=== PATIENT | female | born 1960 | race Caucasian/White ===

== ENCOUNTER → 2017-10-27 08:00 | Outpatient (CLI) | payer MEDICAID ==
[~2017-10-27] VITALS: Ht 160 cm; Wt 68.2 kg
--- NOTE | ~2017-10-27 | HEMODYNAMI ---
PATIENT:NJ SILVA MEDICAL RECORD: [id number] : 62 LOCATION:[facility] ADMISSION DATE: 10/27/17 Generatedon:10/27/201710:41 Patient name: NJ SILVA Patient #: [id number] SSN: D OB: 1960 Date of study: 10/27/2017 Page: Of Hemodynamic Procedure Report Patient Data Patient Demographics Procedure consent was obtained First Name: NJ Gender: Female Last Name: RICARDO : 1960 Middle Initial: JOHANN Age: 57 year(s) Patient #: [id number] Race: Unknown Additional ID: [id number] Contact details Address: [address] [place] [address] ROAD State: [place] [facility] [place] code: [address] Past Medical History Allergies Allergen Reaction Date Comments Reported Other allergy 10/27/2017 Codeine Admission Admission Data Admission Date: 10/27/2017 Admission Time: 8:00 Procedure Procedure Types Cath Procedure Diagnostic Procedure C LHC w/Coronaries Procedure Description Procedure Date Procedure Date: 10/27/2017 Procedure Start Time: 10:30 Procedure End Time: 10:37 Procedure Staff Name Function Sunny Maya MD Performing Physician Gemma Adan RT Monitor Renea Mahmood RT Scrub Rosy Saucedo RN Nurse Procedure Data Cath Procedure Fluoroscopy Diagnostic fluoroscopy Total fluoroscopy Time: 0.8 time: 0.8 min min Diagnostic fluoroscopy Total fluoroscopy dose: 192 dose: 192 mGy mGy Contrast Material Contrast Material Type Amount (ml) Isovue 300 52 Entry Location Entry Primary Successful Side Size Upsize Upsize Entry Closure Succes sful Closure Location (Fr) 1 (Fr) 2 (Fr) Remarks Device Remarks Femoral Right 5 Fr Exoseal artery Estimated blood loss: 10 ml Diagnostic catheters Device Type Used For End Catheter Placement MULTIPACK Pigtail 5 Fr Procedure catheter MULTIPACK JL 4.0 5Fr Procedure catheter MULTIPACK 3DRC 5Fr Procedure catheter Procedure Complications No complications Procedure Medications Medication Administration Route Dosage Oxygen etCO2 Nasal cannula 2 l/min Lidocaine 2% added to field 20 Heparin Flush Bag added to field 2 bags (1000units/500ml NS) 0.9% NaCl I.V. 100 ml/hr Versed I.V. 1 mg Fentanyl I.V. 50 mcg Zofran I.V. 4 mg Versed I.V. 1 mg Fentanyl I.V. 50 mcg Hemodynamics Rest Heart Rate: 70 (bpm) Snapshots Pre Cath Intra NCS Post Cath Vital Signs Time Heart Resp SPO2 etCO2 NIBP (mmHg) Rhythm Pain Sedation Rate (ipm) (%) (mmHg) Status Level (bpm) 9:57:00 71 17 99 0 119/74(97) NSR 0 (11) 10(A) , No pain 10:01:06 73 18 100 0 136/83(104) NSR 0 (11) 10(A) , No pain 10:05:16 65 19 97 0 130/68(111) NSR 0 (11) 10(A) , No pain 10:25:02 64 15 100 36.8 137/81(120) NSR 0 (11) 10(A) , No pain 10:29:14 69 15 99 37.6 121/72(104) NSR 0 (11) 9(A) , No pain 10:33:22 77 16 98 44.3 110/70(85) NSR 0 (11) 9(A) , No pain 10:37:40 80 18 98 42.1 109/75(100) NSR 0 (11) 9(A) , No pain 10:39:33 86 19 98 42.8 120/80(96) NSR 0 (11) 10(A) , No pain Medications Time Medication Route Dose Verified Delivered Reason Notes Eff ectiveness by by 10:24:01 0.9% NaCl I.V. 100 Sunny Garrisonie Per ml/hr Zulma Saucedo RN physician 10:24:26 Zofran I.V. 4 mg Sunny Garrisonie Per Zulma Saucedo RN physician 10:24:42 Oxygen etCO2 2 Sunny Garrisonie used for Nasal l/min Zulma Saucedo emergency department technician cannula 10:24:48 Lidocaine 2% added 20ml Sunny Correa for local to vial Zulma Maya MD anesthetic field 10:24:53 Heparin Flush added 2 Sunny Sunny used for Bag to bags Zulma Maya MD procedure (1000units/500ml field NS) 10:28:10 Versed I.V. 1 mg Sunny Gallegos for Zulma Saucedo RN sedation 10:28:17 Fentanyl I.V. 50 Sunny Gallegos for mcg Zulma Saucedo RN sedation 10:33:05 Versed I.V. 1 mg Sunny Gallegos for Zulma Saucedo RN sedation 10:33:09 Fentanyl I.V. 50 Sunny Gallegos for joyce Saucedo RN sedation Procedure Log Time Note 9:17:10 Diagnostic Cath Status : Elective 9:17:50 Rosy Saucedo RN sent for patient. Start room use. 9:17:51 Time tracking: Regular hours (M-F 7:00 - 5:00) 9:17:56 Plan of Care:Hemodynamics will remain stable., Cardiac rhythm will remain stable., Comfort level will be maintained., Respiratory function will remain adequate., Patient/ family verbilizes understanding of procedure., Procedure tolerated without complication., Recovers from procedure without complications.. 9:50:56 Patient received from Pre/Post Procedure Room to CCL 2 Alert and oriented. Tansferred to table in Supine position. 9:50:57 Warm blankets applied, and sherry hugger turned on for patient comfort. 9:50:58 Correct patient and procedure confirmed by team. 9:50:59 Signed procedure consent form obtained from patient. 9:51:00 ECG and BP/O2 sat monitors applied to patient. 9:55:51 Vital chart was started 9:55:56 Baseline sample Acquired. 9:56:01 Rhythm: sinus rhythm 9:56:03 Full Disclosure recording started 9:56:19 H&P Date Dictated: 10/25/2017 Within 30 days and on chart.. 9:56:20 Pre-procedure instructions explained to patient. 9:56:22 Pre-op teaching completed and patient verbalized understanding. 9:56:25 Family in waiting room. 9:56:28 Patient NPO since Midnight. 9:56:46 Patient allergic to Other allergyCodeine 9:56:49 Is the patient allergic to Iodine/contrast media? No. 9:56:51 Was the patient premedicated? Yes 9:56:52 Is patient on blood thinner?Yes 9:56:55 ACC The patient was administered the following blood thiners within the last 24 hours: ACCPlavix 9:57:00 Patient diabetic? No. 9:57:04 Snore? Yes 9:57:05 Sleep apnea? No 9:57:10 Dentures? No ? 9:57:22 Patient pain scale 0/10 ?. 9:57:34 Lab results completed and on chart. 9:57:38 Right groin area was prepped with chlora-prep and draped in sterile fashion 9:57:39 Alarms reviewed by R. N. 9:57:40 Sharps counted by scrub and verified by R.N. 9:57:41 Physician paged 10:16:21 IV right wrist D/C'd due to infiltration. 10:23:29 IV started 24 g to left hand x 3 attempts by Oscar Mi RN. 10:24:01 0.9% NaCl 100 ml/hr I.V. was administered by Rosy Saucedo RN; Per physician; 10:24:26 Zofran 4 mg I.V. was administered by Rosy Saucedo RN; Per physician; 10:24:42 Oxygen 2 l/min etCO2 Nasal cannula was administered by Rosy Saucedo RN; used for procedure; 10:24:48 Lidocaine 2% 20ml vial added to field was administered by Sunny Maya MD; for local anesthetic; 10:24:53 Heparin Flush Bag (1000units/500ml NS) 2 bags added to field was administered by Sunny Maya MD; used for procedure; 10:26:17 Physician arrived 10:26:17 --------ALL STOP TIME OUT------ 10:26:20 Final Timeout: patient, procedure, and site verified with staff and physician. All members of the team are in agreement. 10:26:23 Right groin site verified by team. 10:26:41 Physical assessment completed. ASA score P 2 - A patient with mild systemic disease as per Sunny Maya MD. 10:26:45 Sedation plan: IV Moderate Sedation Medication:Versed, Fentanyl 10:26:49 Use device set Femoral Dx 10:26:51 ACIST Syringe (24725) opened to sterile field. 10:26:51 Bag Decanter (2002S) opened to sterile field. 10:26:52 Medline Cath Pack ([id number]) opened to sterile field. 10:26:52 DIAGNOSTIC WIRE .035 260cm J wire (754166) opened to sterile field. 10:26:53 ACIST Hand Control (77327) opened to sterile field. 10:26:54 ACIST Manifold (20427) opened to sterile field. 10:26:54 DIAGNOSTIC Multipack 5Fr catheter set (UM7583) opened to sterile field. 10:27:00 Tegaderm 4 x 4 (1626W) opened to sterile field. 10:27:01 PERCUTANEOUS ENTRY 19GA needle opened to sterile field. 10:27:05 SHEATH Prelude 5Fr 0.035 (ZAY-4F-08-035) opened to sterile field. 10:28:10 Versed 1 mg I.V. was administered by Rosy Saucedo RN; for sedation; 10:28:17 Fentanyl 50 mcg I.V. was administered by Rosy Saucedo RN; for sedation; 10:29:53 Zero performed for pressure channel P1 10:30:08 Procedure started. 10:30:13 Local anesthetic to right femoral artery with Lidocaine 2% by Sunny Maya MD.INITIAL ACCESS ONLY 10:32:11 A 5 Fr sheath was inserted into the Right Femoral artery 10:32:23 A MULTIPACK Pigtail 5 Fr catheter was advanced over the wire and used for Procedure. 10:32:29 LV angiography performed. 10:32:32 LV gram done using BARRERA 10:32:37 EF : 40 % 10:32:44 Catheter removed. 10:33:04 A MULTIPACK JL 4.0 5Fr catheter was advanced over the wire and used for Procedure. 10:33:05 Versed 1 mg I.V. was administered by Rosy Saucedo RN; for sedation; 10:33:08 LCA angiography performed. 10:33:09 Fentanyl 50 mcg I.V. was administered by Rosy Saucedo RN; for sedation; 10:34:01 Catheter removed. 10:34:09 A MULTIPACK 3DRC 5Fr catheter was advanced over the wire and used for Procedure. 10:34:31 RCA angiography performed. 10:34:47 Catheter removed. 10:34:55 EXOSEAL 5Fr (EX500) opened to sterile field. 10:35:56 Sheath removed intact; hemostasis achieved with Exoseal to the Right Femoral artery. 10:36:04 Procedure ended.(Physican Out) 10:36:25 Fluoroscopy time 00.80 minutes. 10:36:37 Flurop Dose total: 192 10:36:37 Fluoroscopy dose: 192 mGy 10:36:41 Contrast amount:Isovue 300 52ml. 10:36:43 Sharps counted by scrub and verified by R.N. 10:36:45 Insertion/operative site no bleeding no hematoma. 10:36:49 Post-op/insertion site Right Femoral artery dressed using a 4 x 4 and Tegaderm. 10:36:51 Post Procedure Pulses reassessed and unchanged 10:36:54 Post procedure rhythm: unchanged. 10:36:56 Estimated blood loss: 10 ml 10:36:58 Post procedure instruction explained to patient.Patient verbalizes understanding. 10:37:08 Procedure and supply charges have been captured, reviewed, submitted and are correct. 10:37:28 Procedure Complication : No complications 10:37:31 Vital chart was stopped 10:37:32 See physician's report for complete and final results. 10:37:34 Report given to Pre/Post Procedure Room. 10:37:38 Patient transfered to Pre/Post Procedure Room with Stretcher. 10:37:40 Procedure ended. 10:37:40 Full Disclosure recording stopped 10:37:43 End room use (Document Last) Device Usage Item Name Manufacture Quantity Catalog Number Hospital Part Current M inimal Lot# / Charge Number Stock Stock Serial# Code ACIST Syringe Acist 1 [id number] [id number] 313088 [id number] 2 0 (22634) Medical [employer] Inc Bag Decanter Microtek 1 2001S 874957 85747 798089 5 () Medical Inc. Medline Cath Cardinal 1 [id number] 807269 68256 246173 5 Pack Health ([id number]) DIAGNOSTIC WIRE St Vini 1 889477 791514 197637 733180 3 0 .035 260cm J wire (737455) ACIST Hand Acist 1 09432 079878 428117 702204 5 Control (69696) Medical [employer] Inc ACIST Manifold Acist 1 71265 282504 544533 938502 5 (51347) Medical Systems Inc DIAGNOSTIC Cardinal 1 [id number] 001803 73572 886263 3 0 Multipack 5Fr Health catheter set (OD5310) Tegaderm 4 x 4 3M 1 1626W 488136 660094 674589 5 (1626W) PERCUTANEOUS Cook Medical 1 [id number] 032975 182221 5 ENTRY 19GA needle SHEATH Prelude Merit 1 [id number]-[id number] 737984 091118 138468 5 5Fr 0.035 Medical (VFJ-0T-41-035) MULTIPACK Cardinal 1 455646 5 Pigtail 5 Fr Health catheter MULTIPACK JL Cardinal 1 [id number] 5 4.0 5Fr Health catheter MULTIPACK 3DRC Cardinal 1 [id number] 5 5Fr catheter Health EXOSEAL 5Fr Cardinal 1 EX500 485448 560367 336185 1 0 (EX500) Health Signature Audit Odell Stage Time Signature Unsigned Intra-Procedure 10/27/2017 Gemma Adan 10:41:02 AM RT(R) Signatures Monitor : Gemma Adan Signature : RT Date : Time : [place] [place] [address]
--- NOTE | ~2017-10-27 | OP ---
PATIENT NAME: NJ SILVA MEDICAL RECORD: [id number] :62 LOCATION:D.CAT ADMISSION DATE: SURGEON: KATHY AYALA MD DATE OF OPERATION: 10/27/2017 PROCEDURES: 1. Left heart catheterization. 2. Selective coronary angiography. 3. Left ventriculogram. INDICATION: Chest pain compatible with angina. PROCEDURE IN DETAIL: After informed consent was obtained and after detailed explanation of risks, benefits as well as alternative therapies, the patient elected to proceed with angiogram and heart catheterization. The right femoral area was prepped and draped in normal sterile fashion. Right femoral artery was cannulated via modified Seldinger technique with placement of 5-Slovenian sheath. All catheters exchanged through this sheath. FINDINGS: Left ventriculogram was performed in a standard 30-degree BARERRA view, reveals global hypokinesis throughout all segments. Overall ejection fraction 40%. SELECTIVE CORONARY ANGIOGRAPHY: Left main, left anterior descending, left circumflex, right coronary are smooth-walled vessels with no angiographic evidence of coronary artery disease. OVERALL IMPRESSION: 1. No angiographic evidence of coronary artery disease. 2. Normal left heart pressures. 3. 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 Standard medical management and treatment of the cardiomyopathy. TRANSINT:[id number] Voice Confirmation ID: [id number] DOCUMENT ID: [id number] KATHY AYALA MD at 1713 CC: [id number] DICTATION DATE: 10/27/17 1042 DOCUMENTATION ANALYST: 10/27/17 1231 DEP CLI 10/27/17 [place] [id number]
[~2017-10-27 08:00] MED LIST: PLAVIX75 MG PO
[2017-10-27 08:48] VITALS: BP 132/78; Ht 160 cm; Wt 68.2 kg
[2017-10-27 09:35] LABS: CALC OSMOLALITY 280 mosm/kg (275-300); CALCIUM 8.9 mg/dL (8.5-10.1); CARBON DIOXIDE 27.4 mmol/L (21.0-32.0); CHLORIDE - SERUM 106 mmol/L (98-107); CREATININE - SERUM 0.6 mg/dL (0.6-1.3); GLUCOSE 89 mg/dL (74-106); SODIUM 141 mmol/L (136-145); UREA NITROGEN 14 mg/dL (7-18); eGFR NON AFRICAN AMERICAN > 90 mL/min (90-120)
[2017-10-27 09:37] LABS: BASOPHILS 0.4 % (0-2); EOSINOPHILS 3.8 % (0-7); HEMATOCRIT 38.6 % (36.0-48.0); HEMOGLOBIN 12.9 g/dL (12-16); IMMATURE GRANULOCYTES 0.1 % (0-5); LYMPHOCYTES 30.2 % (15-50); MCHC 33.4 g/dL (31.0-37.0); MCV 92.8 fL (80.0-100.0); MEAN PLATELET VOLUME 10.1 fL (7.4-10.4); MONOCYTES 6.8 % (2-11); NEUTROPHILS 58.7 % (40-80); PLATELET COUNT 238 10x3/uL (130-400); RBC 4.16 10x6/uL (4.00-5.40); RDW 13.1 % (11.5-14.5)
== END | disposition home or self-care (01) ==
LOC: D.CATH 08:00
PROVIDERS: Internal Medicine Interventional Cardiology
DX: B33.24 Viral cardiomyopathy (principal)

== ENCOUNTER → 2017-11-10 14:56 | Outpatient (CLI) | payer MEDICAID ==
[2017-10-27 08:48] VITALS: BMI 26.6
== END | disposition home or self-care (01) ==
LOC: D.RAD 14:56
DX: R10.11 Right upper quadrant pain (principal)

== ENCOUNTER 2017-11-29 13:26 | Day surgery (SDC) | payer MEDICAID ==
[~2017-11-29] VITALS: Ht 160 cm; Wt 68.2 kg
--- NOTE | ~2017-11-29 | OP ---
PATIENT NAME: NJ SILVA MEDICAL RECORD: [id number] :62 LOCATION:D.MS Hugo1 ADMISSION DATE:11/29/17 SURGEON: ALISTAIR DEWEY MD DATE OF OPERATION: 11/30/2017 REFERRING PHYSICIAN: Dr. Schwartz ATTENDING PHYSICIAN: Dr. Alonzo. PREOPERATIVE DIAGNOSES: Cholelithiasis and cholecystitis. POSTOPERATIVE DIAGNOSES: Cholelithiasis and cholecystitis. OPERATION PERFORMED: Laparoscopic cholecystectomy with intraoperative cystic duct cholangiogram. SURGEON: Alistair Dewey MD ANESTHESIA: General endotracheal per Dr. Cates. PREOPERATIVE NOTE: This 57-year-old white female patient with well-documented cholelithiasis has upper abdominal and back pain episodes, all consistent with biliary colic or acute on chronic cholecystitis. She was admitted to the hospital through the Emergency Room yesterday with yet another episode of pain and nausea. She is brought to the operating room at this time for laparoscopic cholecystectomy. With the patient in supine position under general endotracheal anesthesia, she was prepped and draped in a sterile manner. A short midline incision was made beneath the umbilicus and carried down to the fascia, which was incised in the midline and standard open technique used to place a Louis port. Pneumoperitoneum was established with carbon dioxide and 3 additional 5-mm ports and one 10-11 were placed in the usual positions. The gallbladder appeared to be mildly edematous, but not acutely inflamed. There were no other acute changes in the right upper quadrant. The gallbladder was retracted cephalad and adhesions to the undersurface were lysed with electrocautery and blunt dissection in the hepatoduodenal ligament exposed the cystic duct, which was followed from the neck of the gallbladder to the origin of the cystic duct. The cystic duct was closed distally with a Hemoclip and then incised and a cholangiocatheter was passed through the abdominal wall and threaded into the duct and held in place with another clip. Real-time digital subtraction technique was then used to perform the cholangiogram, which was normal. There was filling of the cystic duct and common hepatic and common bile duct and right and left hepatic ducts and an aberrant additional duct on the right. There was free flow of contrast through a normally tapered distal bile duct into the duodenum. The cystic duct was subsequently multiply clipped and divided. The cystic duct appeared to be several very small branches, which actually were treated with electrocautery and no additional clips or ligatures were required. There was no bleeding of any consequence. The gallbladder was detached from the liver then with electrocautery dissection. It was not perforated, no contents were spilled. The gallbladder was placed in a sterile plastic bag and extracted later from the umbilical incision. The operative field was irrigated thoroughly with saline and again inspected closely and there was no evidence of bleeding or any other complication. Inspection was performed after reduction of the intra-abdominal pressure again to assure that there was no bleeding. The OPERATIVE REPORT [id number] subhepatic space and subphrenic space were sprayed with 60 cc of 0.25% Marcaine with epinephrine and the specimen was removed and the ports removed. The fascia at the umbilical site was approximated with interrupted [id number]-im-dobcp 0 Vicryl. The wounds were all irrigated with Ancef/gentamicin solution and infiltrated with 0.25% Marcaine with epinephrine. Skin closure was performed with interrupted inverted 3-0 Vicryl and Dermabond glue. The incisions were all dressed with Maxorb Ag, Tegaderm, and Cavilon skin prep. The patient was awakened and extubated and taken to the recovery room in stable condition. There was minimal blood loss during the procedure, less than 20 cc. None was replaced. All sponges, instruments and needles were accounted for. No drain was used and the surgical specimen consisted of the gallbladder and its contents. I will plan for the patient to resume a low fat bland diet and p.o. medications and ambulation today and hopefully she will be ready to go home later this afternoon. I will plan to see her back in my office within the next week or 10 days. TRANSINT:[id number] Voice Confirmation ID: [id number] DOCUMENT ID: [id number] ALISTAIR DEWEY MD at 1307 CC: [id number] DICTATION DATE: 11/30/17 1012 [employer] VESSEL OPERATOR: 11/30/17 1038 [facility] [address] [place] [address]
--- NOTE | ~2017-11-29 | HP ---
PATIENT: NJ SILVA MEDICAL RECORD: [id number] ACCOUNT: [id number] LOCATION:D.MS [id number] : 62 ADMISSION DATE: 11/29/17 PCP: JITENDRA BARRERA HISTORY AND PHYSICAL EXAMINATION DATE OF ADMISSION: 11/29/2017 CHIEF COMPLAINT: Abdominal pain. HISTORY OF PRESENT ILLNESS: This is a 57-year-old female who is followed by Dr. Barrera who has had abdominal pains that are consistent with cholelithiasis and cholecystitis. She had an ultrasound done last month that showed small gallstones in the gallbladder. She has seen Dr. Paredes and was scheduled for laparoscopic cholecystectomy on 12/15/2017. She presented to the ER today with increased pain in her back and right upper quadrant of the abdomen with associated nausea and vomiting consistent with gallbladder disease. She is admitted today and Dr. Paredes has been consulted. PAST MEDICAL AND SURGICAL HISTORY: Cholelithiasis, kidney stones. History of nonischemic cardiomyopathy, likely viral. PAST SURGICAL HISTORY: Bladder sling, lithotripsy, and ORIF of right ankle. HOME MEDICATIONS: None. ALLERGIES: CODEINE. FAMILY HISTORY: Father at age 60 of prostate cancer. Mother at age 67 of throat cancer. 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 HABITS: She does smoke. She denies any alcohol or drug use. REVIEW OF SYSTEMS: GENERAL: No major weight changes. HEENT: No particular sinus or allergy problems. RESPIRATORY: No diagnosis of asthma or emphysema. CARDIAC: No history of known heart disease. She had echocardiogram just last month showing ejection fraction of 40% to 45%. Dr. Maya felt she had nonischemic cardiomyopathy likely viral. GASTROINTESTINAL: See above history with known gallstones. GENITOURINARY: She has had a history of a bladder sling. MUSCULOSKELETAL: No significant joint aches and pains. NEUROLOGIC: No migraines or seizures. PSYCHIATRIC: Denies depression or melancholia. PHYSICAL EXAMINATION: VITAL SIGNS: Today, temperature 97.4, pulse 69, respirations 18, and blood pressure 119/68. GENERAL: She is sleeping but easily awakened. HEENT: Grossly within normal limits. NECK: Supple. HEART: Regular rate and rhythm. LUNGS: Clear. HISTORY AND PHYSICAL [id number] [place],N[place] JOHANN ABDOMEN: With some generalized right upper quadrant abdominal pain. No guarding, rebound, no mass. EXTREMITIES: No edema. LABORATORY DATA: Urinalysis showed trace blood, otherwise unremarkable. CBC with a white count of 7700, hemoglobin 13.3, and platelet count 247,000. Sodium 139, potassium 3.6, chloride 104, CO2 26.1, BUN 15, creatinine 0.7, glucose 153, calcium 8.5. Liver functions are essentially normal. Troponin less than 0.017. IMAGING: Chest x-ray is done showing no acute process. Ultrasound done last month showed small gallstones. ASSESSMENT: 1. Cholelithiasis. 2. Cholecystitis. 3. Worsening abdominal pain. PLAN: Dr. Paredes has seen the patient and we will proceed with laparoscopic cholecystectomy and cholangiogram in the morning. TRANSINT:[id number] Voice Confirmation ID: [id number] DOCUMENT ID: [id number] BRANDON RAMIREZ MD at 0848 CC: [id number] DICTATION DATE: 11/29/172041 [employer]: 11/29/17 2322 ADM IN [place] [address] [place] [address]
[2017-11-29 14:00] VITALS: BP 138/84
[2017-11-29 14:32] LABS: ALBUMIN 3.8 g/dL (3.4-5.0); ALKALINE PHOSPHATASE 83 U/L (46-116); ALT (SGPT) 24 U/L (10-68); BILIRUBIN - TOTAL 0.16 mg/dL (0.2-1.3); CALC OSMOLALITY 281 mosm/kg (275-300); CALCIUM 8.5 mg/dL (8.5-10.1); CARBON DIOXIDE 26.1 mmol/L (21.0-32.0); CHLORIDE - SERUM 104 mmol/L (98-107); CREATININE - SERUM 0.7 mg/dL (0.6-1.3); POTASSIUM - SERUM 3.6 mmol/L (3.5-5.1); PROTEIN - SERUM 7.7 g/dL (6.4-8.2); SODIUM 139 mmol/L (136-145); UREA NITROGEN 15 mg/dL (7-18); eGFR NON AFRICAN AMERICAN > 90 mL/min (90-120)
[2017-11-29 14:33] LABS: GLUCOSE 153 mg/dL (74-106)
[2017-11-29 14:45] LABS: AMYLASE - SERUM 41 U/L (25-115); CKMB 0.8 U/L (0.0-3.6); CREATINE KINASE 85 UL (21-215); LIPASE 113 U/L (73-393); TROPONIN-I < 0.017 ng/mL (0.000-0.060)
[2017-11-29 15:00] VITALS: BP 134/77
[2017-11-29 15:10] LABS: BASOPHILS 0.3 % (0-2); EOSINOPHILS 3.2 % (0-7); HEMATOCRIT 39.2 % (36.0-48.0); HEMOGLOBIN 13.3 g/dL (12-16); IMMATURE GRANULOCYTES 0.1 % (0-5); LYMPHOCYTES 43.4 % (15-50); MCH 31.1 pg (26.0-34.0); MCHC 33.9 g/dL (31.0-37.0); MCV 91.8 fL (80.0-100.0); MEAN PLATELET VOLUME 9.9 fL (7.4-10.4); MONOCYTES 8.7 % (2-11); NEUTROPHILS 44.3 % (40-80); PLATELET COUNT 247 10x3/uL (130-400); RBC 4.27 10x6/uL (4.00-5.40); RDW 13.3 % (11.5-14.5); WBC 7.7 10x3/uL (4.8-10.8)
[2017-11-29 16:00] VITALS: BP 119/68
[2017-11-29 18:24] LABS: APPEARANCE CLEAR (CLEAR); BILIRUBIN NEGATIVE (NEGATIVE); COLOR YELLOW (YELLOW); GLUCOSE NEGATIVE (NEGATIVE); KETONE NEGATIVE (NEGATIVE); NITRITE NEGATIVE (NEGATIVE); PROTEIN NEGATIVE (NEGATIVE); SPECIFIC GRAVITY 1.025 (1.005-1.020); UROBILINOGEN NORMAL (NORMAL)
[2017-11-29 18:25] LABS: RED CELLS - URINE OCC /hpf (0-5); WHITE CELLS - URINE OCC /hpf (0-5)
[2017-11-29 20:00] VITALS: BP 122/67
[2017-11-30] VITALS (9 sets, daily range): BP systolic 91–118; BP diastolic 52–67; Ht 160 cm; Wt 68.2 kg
== END 2017-11-30 16:23 | disposition home or self-care (01) ==
LOC: OBSVTIME → D.ER 13:26 → EDSTATUS 15:08 → D.EDHOLD 15:38 → D.MS 15:38 → D.ER 15:38 → D.EDHOLD 17:14 → D.MS 17:14 → D.ER 17:49 → OBSVTIME 18:30 → D.ER 11-30 16:23 → D.MS 11-30 16:23
PROVIDERS: Family Medicine
DX: K80.12 Calculus of gallbladder with acute and chronic cholecystitis without obstruction (principal)

== ENCOUNTER 2018-02-19 08:00 | Outpatient (CLI) | payer MEDICAID ==
[2017-11-30 03:22] VITALS: BMI 26.6
== END 2018-02-19 09:00 | disposition home or self-care (01) ==
LOC: D.MAMMO 08:00
DX: Z12.31 Encounter for screening mammogram for malignant neoplasm of breast (principal)

== ENCOUNTER 2020-07-10 21:00 | Outpatient (CLI) | payer BC ==
[2017-11-30 03:22] VITALS: BMI 26.6
== END 2020-07-10 23:59 | disposition home or self-care (01) ==
LOC: D.MAMMO 21:00
PROVIDERS: ATTEND Family Medicine
DX: Z12.31 Encounter for screening mammogram for malignant neoplasm of breast (principal)